=== PATIENT | male | born 1955 | race Caucasian/White ===

== ENCOUNTER → 2017-08-10 | Day surgery (SDC) | payer MEDICARE ==
[2017-08-08 11:40] LABS: BASOPHILS # (AUTO) 0.1 (0.0-0.1); BASOPHILS % 0.8 % (0.0-1.0); EOSINOPHILS # (AUTO) 0.2 (0.0-0.4); EOSINOPHILS % 2.8 % (0.0-6.0); HEMATOCRIT 43.8 % (38.2-49.6); HEMOGLOBIN 14.1 g/dL (14.0-18.0); LYMPHOCYTES # (AUTO) 2.2 (1.0-3.2); MEAN CORPUSCULAR HEMOGLOBIN 29.7 pg (28-32); MEAN CORPUSCULAR HGB CONC 32.2 g/dL (31-35); MEAN CORPUSCULAR VOLUME 92.2 fL (81-99); MONOCYTES # (AUTO) 0.6 (0.2-0.8); MONOCYTES % 8.2 % (4.4-11.3); NEUTROPHILS # (AUTO) 4.5 (2.1-6.9); NEUTROPHILS % 58.7 % (38.7-80.0); PLATELET COUNT 285 x10e3/uL (140-360); RED BLOOD COUNT 4.75 x10e6/uL (4.3-5.7); RED CELL DISTRIBUTION WIDTH 13.2 % (11.7-14.4)
[~2017-08-10] MED LIST: ASPIRIN81 MG PO; CARVEDILOL12.5 MG PO; FENTANYL CITRATE/PF 100MCG/2 ML INJ ONE; GABAPENTIN300 MG PO; LIDOCAINE HCL 2% LOCAL INJ 5 ML SDV VIAL INJ ONE; MIDAZOLAM HCL 2 MG/2 ML VIAL ONE; NORCO 5-325 TA1 EACH PO; PROAIR HFA INH8.5 GM INH; PROPOFOL IV EMULSION 10 MG/ML 20 ML VIAL ONE; SIMVASTATIN40 MG PO
--- OUTSIDE RECORDS SUMMARY | 2017-08-10 09:11 | XMS REPORT | Clinical Summary ---
Author Author [facility] Address Unknown Phone Unavailable Care Team Providers Care Base Remover Name Role Phone Corrine Sharma PCP Allergies Active Allergy Reactions Severity Noted Date Comments Rice 01/18/2017 Causes swelling of both legs Current Medications Prescription Sig. Disp. Refills Start End Date Status Date gabapentin (NEURONTIN) Take 300 mg by mouth 3 Active 300 mg capsule (three) times a day. omeprazole (PriLOSEC) 40 Take 40 mg by mouth Active MG capsule daily. carvedilol (COREG) 6.25 Take 6.25 mg by mouth 2 Active MG tablet (two) times a day with meals. aspirin (ECOTRIN) 81 MG Take 81 mg by mouth Active enteric coated tablet daily. tamsulosin (FLOMAX) 0.4 Take 0.4 mg by mouth Active mg capsule,extended Medrol Dose Pack release 24hr Scheduling ONLY. simvastatin (ZOCOR) 20 MG Take 20 mg by mouth Active tablet nightly. HYDROcodone-acetaminophen Take 1 tablet by mouth Active (NORCO) 10-325 mg per every 6 (six) hours as tablet needed for moderate pain. ciprofloxacin (CIPRO) 500 Take 500 mg by mouth 2 01/13/20 Discontin MG tablet (two) times a day. 17 ued Active Problems Problem Noted Date Hx of endovascular stent graft for abdominal aortic aneurysm 04/19/2017 AAA (abdominal aortic aneurysm) 01/28/2017 Aortic aneurysm 01/28/2017 Abdominal aortic aneurysm (AAA) without rupture 12/02/2016 Essential hypertension 12/02/2016 Tobacco dependence 12/02/2016 Acute cystitis without hematuria 12/02/2016 Encounters Date Type Specialty Care Team Description 04/19/2017 Office Visit Cardiovascular Carlos Suresh Hx of endovascular stent MD Karan graft for abdominal aortic aneurysm (Primary Dx) 04/19/2017 Orders Only Cardiovascular Sherin Hubbard MA 03/24/2017 Telephone Cardiology Erik Birmingham MD unable to reach pt regarding appt 03/17/2017 Orders Only Zulma Gallego Patient in clinical research study (Primary Dx) 02/25/2017 Orders Only Zulma Gallego Exam for clinical research (Primary Dx) 02/24/2017 Orders Only Nahomi Flannery RN Research exam (Primary Dx) 02/24/2017 Orders Only Zulma Gallego Exam for clinical research (Primary Dx) 02/21/2017 Orders Only Cardiovascular Sherin Hubbard MA Status post surgery (Primary Dx) 02/01/2017 Orders Only Zulma Gallego Exam for clinical research (Primary Dx) 01/29/2017 Patient Quality Shanna Lizarraga, RN Outreach 01/28/2017 [facility] Cardiology Carlos Suresh - Encounter MD Karan 01/29/2017 01/28/2017 Procedure Pass Cardiothoracic Surgery 01/28/2017 Surgery Cardiothoracic Surgery Carlos Suresh ENDOVASCULAR AORTIC MD Karan ANEURYSM REPAIR, WITH EXCLUDER AAA ENDOPROSTHESIS TRUNK-IPSILATERAL LEG 26MM IN AORTA RIGHT COMMON ILIAC, EXCLUDER AAA ENDOPROSTHESIS CONTRALATERAL LEG 16MM IN LEFT COMMON ILIAC 01/18/2017 [facility] Radiology Carlos Suresh Encounter MD Karan 01/18/2017 Pre-Admit Pre-Admission Testing Carlos Suresh Pre-op testing (Primary Testing MD Karan Dx) Appointment 01/18/2017 Office Visit Cardiovascular Carlos Suresh Abdominal aortic aneurysm MD Karan (AAA) without rupture (Primary Dx);Tobacco dependence;Essential hypertension 01/18/2017 Anesthesia Cardiothoracic Surgery Ruy Horton, JESSICA Event 01/12/2017 [facility] Radiology Carlos Suresh Abdominal aortic aneurysm Encounter MD Karan (AAA) without rupture 12/16/2016 Transcribe Access Carlos Suresh Abdominal aortic aneurysm Orders MD Karan (AAA) without rupture (Primary Dx) 12/03/2016 Orders Only Cardiovascular Sherin Hubbard MA Abdominal aortic aneurysm (AAA) without rupture (Primary Dx) 12/02/2016 Office Visit Cardiovascular Carlos Suresh Abdominal aortic aneurysm MD Karan (AAA) without rupture (Primary Dx);Essential hypertension;Acute cystitis without hematuria;Tobacco dependence after 08/09/2016 Social History Tobacco Use Types Packs/Day Years Used Date Current Every Day Smoker Cigarettes 1.5 40 Smokeless Tobacco: Never Used Alcohol Use Drinks/Week oz/Week Comments Yes occ. Sex Assigned at Date Recorded Not on file Last Filed Vital Signs Vital Sign Reading Time Taken Blood Pressure 144/82 04/19/2017 1:03 PM CDT Pulse 82 04/19/2017 1:03 PM CDT Temperature 36.8 C (98.2 F) 04/19/2017 1:03 PM CDT Respiratory Rate 17 01/29/2017 11:28 AM CDT Oxygen Saturation 95% 01/29/2017 11:28 AM CDT Inhaled Oxygen - - Concentration Weight 88 kg (194 lb) 04/19/2017 1:03 PM CDT Height 170.2 cm (5' 7") 04/19/2017 1:03 PM CDT Body Mass Index 30.38 04/19/2017 1:03 PM CDT Plan of Treatment Health Maintenance Due Date Last Done Comments COLONOSCOPY 2004 ZOSTER VACCINE 2014 INFLUENZA VACCINE 02/01/2017 Implants Implanted Type Area Stockroom Attendant Device Expiration Model / Identifier Date Serial / Lot [id number] Main Body - IPM N/A: N/A [employer] 07/12/2019 [id number] - [id number] IMPLANT / Implanted: Qty: 1 on 01/28/2017 by DEVICES [id number] / Carlos Suresh MD [id number] [facility] [id number] [facility] Vascular Closure Medical 2114 - [id number] Science & / Implanted: Qty: 1 on 01/28/2017 by Research Carlos Suresh MD Stent Kbfibo-V-[id number] Endprths Vascular N/A: N/A W L GORE 09/08/2019 [id number] Excluder Aaa 12cm 12mm - [id number] Graft / - [id number] / Implanted: Qty: 1 on 01/28/2017 by [id number] Carlos Suresh MD Procedures Procedure Name Priority Date/Time Associated Diagnosis Comments ARTERIAL LINE Routine 01/28/2017 8:23 AM CDT Procedure Note - Joan Velasquez MD - 01/28/2017 7:58 AM CDT Arterial line Performed by: VICTOR HUGO BURCH Authorized by: VICTOR HUGO BURCH Patient Location: OR Staff: Anesthesio logist: JOAN VELASQUEZ Resident/C RNA: BREN SON Performed by: Resident/C RNA Pre-proced ure: patient identified , IV checked, site and side verified, risks and benefits discussed, procedure verified, surgical consent complete, patient position confirmed, monitors and equipment checked and pre-op evaluation complete MSBT: antiseptic used, all elements of maximal sterile barrier technique followed, hand hygiene performed, cap/gown used by other personnel and solutions labeled Indication s: Indication s: multiple ABGs and hemodynami c monitoring Anesthesia : Anesthesia : Local infiltrati on Procedure Details: Arterial Line placement: Placed pre-induct ion Line placement site: Radial Line placement side: Right Arterial line gauge: 20 G Number of attempts: 1 Ultrasound guidance used: No Post-proce dure: Post-proce dure: Sterile dressing applied Post procedure circulatio n, sensation, movement: Normal Patient tolerance: Patient tolerated the procedure well with no immediate complicati ons NE AN ELECTIVE Routine 01/28/2017 ENDOTRACHEAL AIRWAY 8:22 AM CDT Procedure Note - Joan Velasquez MD - 01/28/2017 7:58 AM CDT Airway Performed by: VICTOR HUGO BURCH Authorized by: VICTOR HUGO BURCH Location: OR Urgency: Elective Difficult Airway: No Anesthesio logist: JOAN VELASQUEZ Resident/C RNA: VICTOR HUGO BURCH Performed by: resident/C LORENZA Preoxygena shanti with 100% O2: Yes C-spine Precaution s Maintained Throughout : Yes Mask Ventilatio n: Easy mask Final Airway Type: Endotrache al airway Final Endotrache al Airway: ETT Cuffed: Yes Technique Used: Direct laryngosco py Insertion Site: Oral Blade Type: Grimm Laryngosco pe Blade/Vide olaryngosc ope Blade Size: 2 ETT Size (mm): 8.0 Cuff at minimum occlusion pressure: Yes Measured from: Lips ETT to Lips (cm): 22 Placement Verified by: CO2 detection, direct visualizat ion and equal breath sounds Laryngosco pic view: Grade I - full view of glottis Rapid Sequence Induction (RSI): No Modified RSI: No Number of Attempts at Approach: 1 after 08/09/2016 Results * PV ankle brachial indices extremity complete (01/29/2017 1:50 PM) Only the most recent of 2 results within the time period is included. Specimen Performing Laboratory [facility] [address] [place] [address] Narrative Vascular Diagnostic Laboratory Physiologic Arterial Leg Report [address] [place] [address] Pat.Name:GWEN MILLS Pat.ID:[id number] St.Date: 01/29/2017 Refer.MD:CARLOS SURESH MD Exam Time: 1:29:00 PMStudy Type:Physiologic Leg DOBAge:1955,61Y Sex: MALE Sonogrphr: Jarod Gregorio RVT Pat. Stat.:Inpatient Room:Y482-XBsivFcj: [facility] - 4: 23984 Echo Event ID:[id number] Order ID:[id number] Reason for Study:MANTA research study; pre-discharge NORBERTO exam. s/p EVAR. Race:D SUMMARY: PULSES: RIGHT LEFT Dorsalis Pedis+ + Posterior Tibial+ + DOPPLER SIGNALS /ANALOG WAVEFORMS: DOPPLER SIGNALS ARTERY RIGHT LEFT Posterior Tibial Normal Normal Dorsalis Pedis Normal Normal PRELIMINARY FINDINGS: 1. The right dorsalis pedis falls within the minimal category 2. The right posterior tibial and left sided ankle brachial index is normal 3. Doppler signals are triphasic, bilaterally PHYSICIAN INTERPRETATION: Bilateral lower extremity arterial exam demonstrates no evidence of significant arterial occlusive disease. MEASUREMENTS: PRESSURES Right Brachial Brach P120 mmHg Left Brachial Brach P127 mmHg Right Ankle PT AnklePT P126 mmHg Left Ankle PT AnklePT P129 mmHg Right Ankle DP AnkleDP P120 mmHg Left Ankle DP AnkleDP P133 mmHg Right NORBERTO PT NORBERTO PT 0.992 Left NORBERTO PT NORBERTO PT1.02 Right NORBERTO DP NORBERTO DP 0.945 Left NORBERTO DP NORBERTO DP1.05 Signed 01/29/2017 05:50 PM Woody Marie MD, RPVI Procedure Note Interface, Radiology Results In - 01/29/2017 5:52 PM CDT Vascular Diagnostic Laboratory Physiologic Arterial Leg Report [address] [place] [address] Pat.Name: GWEN MILLS Pat.ID: [id number] .Date: 01/29/2017 Refer.MD: CARLOS SURESH MD Exam Time: 1:29:00 PM Study Type:Physiologic Leg Age: 7 1955,61Y Sex: MALE Sonogrphr: Jarod Gregorio RVT Pat. Stat.:Inpatient Room: [address] Vol: VB, CPT - 4: [address]16 Echo Event ID:[id number] Order ID: [id number] Reason for Study:MANTA research study; pre-discharge NORBERTO exam. s/p BIRDAR. Race: D SUMMARY: PULSES: RIGHT LEFT Dorsalis Pedis + + Posterior Tibial + + DOPPLER SIGNALS / ANALOG WAVEFORMS: DOPPLER SIGNALS ARTERY RIGHT LEFT Posterior Tibial Normal Normal Dorsalis Pedis Normal Normal PRELIMINARY FINDINGS: 1. The right dorsalis pedis falls within the minimal category 2. The right posterior tibial and left sided ankle brachial index is normal 3. Doppler signals are triphasic, bilaterally PHYSICIAN INTERPRETATION: Bilateral lower extremity arterial exam demonstrates no evidence of significant arterial occlusive disease. MEASUREMENTS: PRESSURES Right Brachial Brach P 120 mmHg Left Brachial Brach P 127 mmHg Right Ankle PT AnklePT P 126 mmHg Left Ankle PT AnklePT P 129 mmHg Right Ankle DP AnkleDP P 120 mmHg Left Ankle DP AnkleDP P 133 mmHg Right NORBERTO PT NORBERTO PT 0.992 Left NORBERTO PT NORBERTO PT 1.02 Right NORBERTO DP NORBERTO DP 0.945 Left NORBERTO DP NORBERTO DP 1.05 Signed 01/29/2017 05:50 PM Woody Marie MD, RPVI * POC glucose (01/29/2017 12:20 PM) Only the most recent of 5 results within the time period is included. Component Value Ref Range POC glucose 99 65 - 99 mg/dL Comment: [facility] Notified RN Meter ID: [id number] Brass Molder Helper: Shreysa Arunaant Diaz Specimen Performing Laboratory [facility] DEPARTMENT OF PATHOLOGY AND GENOMIC MEDICINE [address] [place] [address] * PV duplex arterial lower extremity (01/28/2017 1:51 PM) Specimen Performing Laboratory [facility] [address] [place] [address] Narrative Vascular Ultrasound Laboratory Lower Extremity Arterial Duplex Report [address] [place] [address] Pat.Name:GWEN MILLS Pat.ID:[id number] .Date: 01/28/2017 Refer.MD:CARLOS SURESH MD Exam Time: 1:15:00 PMStudy Type:LE Arterial DOBAge:1955,61Y Sex: MALE Sonogrphr: Jarod Gregorio RVT Pat. Stat.:Inpatient Room:H177-VLouyIae: , CPT - 4: 40959 Echo Event ID:[id number] Order ID:[id number] Reason for Study:MANTA research study; post-op arterial exam. s/p EVAR. Race:D SUMMARY: DUPLEX SCAN OBSERVATIONS: RIGHT: The femoral artery and vein are visualized in the right groin. A bright echogenic structure/closure device is seen in the distal common femoral artery. Trickle flow is noted around the device and into the tissue, however there is no evidence of a pseudoaneurysm sac or hematoma. There are elevated velocities obtained in the common femoral artery at the level of the closure device, and disturbed flow in the profunda, and superficial femoral artery. Venous flow shows normal phasicity and augmentation with no evidence of AV fistula. PRELIMINARY FINDINGS: 1. No evidence of pseudoaneurysm, hematoma or AV fistula in the right groin 2. Echogenic structure/closure device is seen in the distal common femoral artery 3. Trickle flow is seen around the device and into the tissue, however there is no evidence of a sac formation 4. Elevated velocities are obtained in the common femoral artery at the level of the closure device PHYSICIAN INTERPRETATION: No evidence of pseudoaneurysm, hematoma or AV fistula in the right groin 50% right SAFETY SPEC stenosis. MEASUREMENTS: DOPPLER Right EIA Dist EIA Dist PSV 142 cm/s Right SAFETY SPEC Mid SAFETY SPEC Mid UEH054 cm/s Right SAFETY SPEC Dist SAFETY SPEC Dist PSV 229 cm/s Right Profunda Profunda PSV61 cm/s Right SFA Prox SFA Prox PSV 117 cm/s Signed 01/28/2017 09:29 PM Woody Marie MD, RPVI Procedure Note Interface, Radiology Results In - 01/28/2017 9:29 PM CDT Vascular Ultrasound Laboratory Lower Extremity Arterial Duplex Report [address] [id number] Pat.Name: GWEN MILLS.ID: [id number] .Date: 01/28/2017 Refer.MD: CARLOS SURESH MD Exam Time: 1:15:00 PM Study Type:LE Arterial Age: 7 1955,61Y Sex: MALE Sonogrphr: Jarod Gregorio KESHIA Pat. Stat.:[facility] - 4: [address]4843 Echo Event ID:[id number] Order ID: [id number] Reason for Study:MANTA research study; post-op arterial exam. s/p EVAR. Race: D SUMMARY: DUPLEX SCAN OBSERVATIONS: RIGHT: The femoral artery and vein are visualized in the right groin. A bright echogenic structure/closure device is seen in the distal common femoral artery. Trickle flow is noted around the device and into the tissue, however there is no evidence of a pseudoaneurysm sac or hematoma. There are elevated velocities obtained in the common femoral artery at the level of the closure device, and disturbed flow in the profunda, and superficial femoral artery. Venous flow shows normal phasicity and augmentation with no evidence of AV fistula. PRELIMINARY FINDINGS: 1. No evidence of pseudoaneurysm, hematoma or AV fistula in the right groin 2. Echogenic structure/closure device is seen in the distal common femoral artery 3. Trickle flow is seen around the device and into the tissue, however there is no evidence of a sac formation 4. Elevated velocities are obtained in the common femoral artery at the level of the closure device PHYSICIAN INTERPRETATION: No evidence of pseudoaneurysm, hematoma or AV fistula in the right groin 50% right SAFETY SPEC stenosis. MEASUREMENTS: DOPPLER Right EIA Dist EIA Dist PSV 142 cm/s Right SAFETY SPEC Mid SAFETY SPEC Mid PSV 106 cm/s Right SAFETY SPEC Dist SAFETY SPEC Dist PSV 229 cm/s Right Profunda Profunda PSV 61 cm/s Right SFA Prox SFA Prox PSV 117 cm/s Signed 01/28/2017 09:29 PM Woody Marie MD, RPVI * Sodium level, syringe (01/28/2017 9:50 AM) Only the most recent of 3 results within the time period is included. Component Value Ref Range Sodium, syringe 137 135 - 148 mEq/L Specimen Performing Laboratory Blood [facility] DEPARTMENT OF PATHOLOGY AND [facility] [address] [place] [address] * Potassium, syringe (01/28/2017 9:50 AM) Only the most recent of 3 results within the time period is included. Component Value Ref Range Potassium, syringe 4.1 3.5 - 5.0 mEq/L Specimen Performing Laboratory Blood [facility] DEPARTMENT OF PATHOLOGY [address] [address] * Ionized calcium, arterial (01/28/2017 9:50 AM) Only the most recent of 3 results within the time period is included. Component Value Ref Range Ionized calcium, arterial 1.14 1.11 - 1.32 mmol/L Specimen Performing Laboratory Blood [facility] [place] [address] * Hemoglobin, syringe (01/28/2017 9:50 AM) Only the most recent of 3 results within the time period is included. Component Value Ref Range Hemoglobin, syringe 11.5 (L) 14.0 - 18.0 g/dL Specimen Performing Laboratory Blood [facility] [place] [address] * Glucose level, syringe (01/28/2017 9:50 AM) Only the most recent of 3 results within the time period is included. Component Value Ref Range Glucose, syringe 129 (H) 65 - 99 mg/dL Specimen Performing Laboratory Blood [facility] DEPARTMENT OF PATHOLOGY [place] [id number] * Arterial blood gas (01/28/2017 9:50 AM) Only the most recent of 2 results within the time period is included. Component Value Ref Range pH, arterial 7.36 7.35 - 7.45 pCO2, arterial 45 35 - 45 mmHg pO2, arterial 291 (H) 80 - 90 mmHg Bicarbonate, arterial 24.5 21.0 - 28.0 mmol/L Base excess, arterial -1 -2 - 2 mEq/L O2 saturation, arterial 100 95 - 100 % Specimen Performing Laboratory Blood [facility] DEPARTMENT OF PATHOLOGY AND [facility] [address] [place] [address] * Arterial blood gas, corrected (01/28/2017 7:33 AM) Component Value Ref Range pH, arterial 7.33 (L) 7.35 - 7.45 pCO2, arterial 54 (H) 35 - 45 mmHg pO2, arterial 255 (H) 80 - 90 mmHg Temperature, Celsius 36.0 Degrees C O2 saturation, arterial 100 95 - 100 % pH, arterial corrected 7.35 pCO2, arterial corrected 51 mmHg pO2, arterial corrected 251 mmHg Base excess, arterial 1 -2 - 2 mEq/L Specimen Performing Laboratory Blood [facility] DEPARTMENT OF PATHOLOGY AND GENOMIC MEDICINE [address] [place] [address] * XR Chest 2 Vw (01/18/2017 5:57 PM) Specimen Performing Laboratory [facility] [address] [place] [address] Narrative EXAMINATION:XR CHEST 2 VW CLINICAL HISTORY:Z01.818 Encounter for other preprocedural examination, pre op COMPARISON:CTA chest abdomen pelvis performed on 01/12/2017 IMPRESSION: Lungs appear clear without focal infiltrate, pleural effusion or pneumothorax. Minimal elevation left hemidiaphragm. Cardiomediastinal silhouette is within normal limits. Focal atherosclerosis aortic arch. Degenerative changes thoracic spine and bilateral acromioclavicular joints. Osteopenia. [facility]-[id number] Procedure Note [facility], Radiology Results Incoming - 01/18/2017 6:26 PM CDT EXAMINATION: XR CHEST 2 VW CLINICAL HISTORY: Z01.818 Encounter for other preprocedural examination, pre op COMPARISON: CTA chest abdomen pelvis performed on 01/12/2017 IMPRESSION: Lungs appear clear without focal infiltrate, pleural effusion or pneumothorax. Minimal elevation left hemidiaphragm. Cardiomediastinal silhouette is within normal limits. Focal atherosclerosis aortic arch. Degenerative changes thoracic spine and bilateral acromioclavicular joints. Osteopenia. [facility]-[id number] * ECG Pre/Post Op (01/18/2017 5:14 PM) Component Value Ref Range Ventricular rate 83 Atrial rate 83 NE interval 138 QRSD interval 90 QT interval 396 QTC interval 465 P axis 1 54 QRS axis 1 56 T wave axis -51 EKG impression Normal sinus rhythm-T wave abnormality, consider inferior ischemia-Prolonged QT-Abnormal ECG-In automated comparison with ECG of 15-APR-2014 09:38,-T wave inversion now evident in Inferior leads-T wave inversion now evident in Lateral leads- Specimen Performing Laboratory [facility] [address] [place] [address] * Estimated GFR (01/18/2017 5:03 PM) Only the most recent of 2 results within the time period is included. Component Value Ref Range GFR Non Af Amer 61 mL/min/1.73 m2 GFR Af Amer 74 mL/min/1.73 m2 Comment: Chronic kidney disease: <60 mL/min/1.73m2 Kidney failure: <15 mL/min/1.73m2 The estimated GFR is calculated from the IDMS-traceable Modification of Diet in Renal Disease Equation. The accuracy of the calculation is poor when the creatinine is normal. Calculated values >90 mL/min/1.73m2 are not reported. This equation has not been validated in children (<18 years), women, the elderly (>70 years), or ethnic groups other than Caucasians and Americans. Specimen Performing Laboratory Plasma specimen [facility] DEPARTMENT OF PATHOLOGY AND GENOMIC MEDICINE [address] [place] [address] * Urinalysis, automated with microscopy (01/18/2017 5:03 PM) Component Value Ref Range Color, UA Yellow Appearance, UA Clear Specific gravity, UA 1.020 1.001 - 1.035 pH, UA 6.0 5.0 - 8.5 Protein, UA Negative Negative Glucose, UA Negative Negative Ketones, UA Negative Negative Bilirubin, UA Negative Negative Blood, UA Negative Negative Nitrite, UA Negative Negative Urobilinogen, UA <2.0 <2.0 Leukocyte esterase, UA Negative Negative WBC, UA 1 0 - 1 /HPF RBC, UA 1 0 - 1 /HPF Bacteria, UA Few None seen Yeast, UA None seen Yeast with pseudohyphae, None seen UA Specimen Performing Laboratory Urine [facility] DEPARTMENT OF PATHOLOGY AND GENOMIC MEDICINE [address] [place] [address] * Partial thromboplastin time, activated (01/18/2017 5:03 PM) Component Value Ref Range PTT 31.2 23.0 - 36.0 sec Comment: PTT therapeutic range for unfractionated heparin is 61.0-112.0 seconds which corresponds to Anti-Xa 0.3-0.7 U/ml. Specimen Performing Laboratory Blood [facility] DEPARTMENT OF PATHOLOGY AND [facility] [address] [place] [address] * Prothrombin time with INR (01/18/2017 5:03 PM) Component Value Ref Range Prothrombin time 13.1 12.0 - 15.0 sec INR 1.0 Comment: The International Normalized Ratio (INR) is a therapeutic monitoring tool for patients who are stable on oral anticoagulant therapy. An INR of 2.0-3.0 is suggested for deep vein thrombosis/pulmonary embolism. Specimen Performing Laboratory Blood [facility] DEPARTMENT OF PATHOLOGY AND [facility] [address] [place] [address] * CBC hemogram (01/18/2017 5:03 PM) Component Value Ref Range WBC 9.31 4.50 - 11.00 k/uL RBC 4.96 4.40 - 6.00 m/uL HGB 15.1 14.0 - 18.0 g/dL HCT 45.7 41.0 - 51.0 % MCV 92.1 82.0 - 100.0 fL MCH 30.4 27.0 - 34.0 pg MCHC 33.0 31.0 - 37.0 g/dL RDW - SD 47.4 37.0 - 55.0 fL MPV 11.4 8.8 - 13.2 fL Platelet count 293 150 - 400 k/uL Nucleated RBC 0.00 /100 WBC Specimen Performing Laboratory Blood [facility] DEPARTMENT OF PATHOLOGY [address] [address] * Prepare RBC (01/18/2017 5:03 PM) Component Value Ref Range Product name Red Blood Cells -1, Leukored Unit number [id number] Product code [id number] Dispense status Returned to not transfused Blood expiration date 20170225 Blood type code 6200 Blood type A POSITIVE Product name Red Blood Cells -1, Leukored Unit number [id number] Product code [id number] Dispense status Returned to not transfused Blood expiration date 20170224 Blood type code 6200 Blood type A POSITIVE Specimen Performing Laboratory [facility] DEPARTMENT OF PATHOLOGY [facility] [address] [place] [address] * Type and screen (01/18/2017 5:03 PM) Component Value Ref Range ABO grouping A Rh type POS Antibody screen (gel) NEG Specimen Performing Laboratory Blood [facility] DEPARTMENT OF PATHOLOGY AND [facility] [address] [place], [place] [id number] * B natriuretic peptide (01/18/2017 5:03 PM) Component Value Ref Range BNP <3 0 - 100 pg/mL Specimen Performing Laboratory Blood [facility] DEPARTMENT OF PATHOLOGY AND [facility] [address] [place] [address] * Hemoglobin A1c (01/18/2017 5:03 PM) Component Value Ref Range Hemoglobin A1C 5.7 (H) 4.0 - 5.6 % Comment: HbA1c cutoffs for diagnosing diabetes: 4.0% - 5.6%=normal 5.7% - 6.4%=increased risk for diabetes (prediabetes) >=6.5%=diabetes Goals for glycemic control (ADA 2016) < 7.0% Target for non adults with diabetes. More or less stringent targets may be appropriate for individual patients. <7.5% Target for Children and adolescents with type 1 diabetes. Specimen Performing Laboratory Blood [facility] DEPARTMENT OF PATHOLOGY AND GENOMIC MEDICINE [address] [place] [id number] * Hepatic function panel (01/18/2017 5:03 PM) Component Value Ref Range Albumin 3.7 3.5 - 5.0 g/dL Total bilirubin 0.3 0.0 - 1.2 mg/dL Bilirubin direct <0.2 0.0 - 0.3 mg/dL Alkaline phosphatase 55 40 - 129 U/L Protein 7.8 6.3 - 8.3 g/dL Comment: 4.6-7.0 g/dL 1 week 4.4-7.6 g/dL 7 months-1year 5.1-7.3 g/dL 1-2 years 5.6-7.5 g/dL >3 years 6.0-8.0 g/dL 18-150 6.3-8.3 g/dL ALT 17 5 - 50 U/L AST 20 10 - 50 U/L Specimen Performing Laboratory Plasma specimen [facility] DEPARTMENT OF PATHOLOGY AND GENOMIC MEDICINE [address] [place] [id number] * Lipid panel (01/18/2017 5:03 PM) Component Value Ref Range Cholesterol 276 (H) <200 mg/dL Triglycerides 134 <150 mg/dL HDL cholesterol 46 >40 mg/dL LDL cholesterol 201 (H)Comment: Result obtained by direct LDL <100 mg/dL measurement Lipid panel SeeBelow interpretation Comment: Total Cholesterol (mg/dL) <200 Desirable 200-239 Borderline-high >=240 High Triglycerides (mg/dL) <150 Normal 150-199 Borderline-high 200-499 High >=500 Very high HDL Cholesterol (mg/dL) <40 Low (male) <40 Low (female) LDL Cholesterol (mg/dL) <100 Optimal 100-129 Near or above optimal 130-159 Borderline-high 160-189 High >=190 Very high Risk Catergories that modify LDL goals. Risk Catergories LDL goal (mg/dL) CHD and CHD risk equivalent <100 (10-year risk >20%) Multiple (2+) risk factors <130 (10-year risk=<20%) 0-1 risk factors <160 (<10-year risk) Defining levels of lipids in metabolic syndrome Triglycerides >=150 mg/dL HDL Cholesterol Men <40 mg/dL Women <40 mg/dL Non-HDL cholesterol is a second target for therapy in persons with high triglycerides (>=200 mg/dL) Specimen Performing Laboratory Plasma specimen [facility] DEPARTMENT OF PATHOLOGY AND [facility] [address] [place] [id number] * Basic metabolic panel (01/18/2017 5:03 PM) Component Value Ref Range Sodium 137 135 - 148 mEq/L Potassium 4.1 3.5 - 5.0 mEq/L Chloride 97 (L) 98 - 112 mEq/L CO2 24 24 - 31 mEq/L Anion gap 16 (H) 7 - 15 mEq/L Comment: Starting from October , anion gap calculation no longer incorporates potassium. Please note the change. BUN 13 8 - 23 mg/dL Creatinine 1.2 0.7 - 1.2 mg/dL Glucose 127 (H) 65 - 99 mg/dL Calcium 9.5 8.8 - 10.2 mg/dL Specimen Performing Laboratory Plasma specimen [facility] DEPARTMENT OF PATHOLOGY AND GENOMIC MEDICINE [address] [place] [id number] * CT Angiogram Chest W Contrast Abdomen W Contrast Pelvis W Contrast (2016 1:20 PM) Specimen Performing Laboratory [id number] ANGIOGRAM CHEST ABDOMEN PELVIS W AND OR WITHOUT CONTRAST CLINICAL HISTORY:I71.4 Abdominal aortic aneurysmwithout rupture, AAA TECHNIQUE: CT angiography of the chest and abdomen was performed following the intravenous administration of iodinated contrast with automated exposure control and/or iterative reconstruction techniques to radiation dose. In addition to standard reformatted images, 3-D MIP and volume renderedimages were performed for CT angiography. COMPARISON:None. FINDINGS: AORTA:The thoracic aorta is normal in caliber with uncoiling of the ascending aorta with mildly tortuous course of the descending thoracic aorta without aneurysm or acute abnormality visualized. Mild atherosclerotic plaque is present. There is also prominent eccentric plaque in the proximal infrarenal aorta with a nearly 6 cm in length distal abdominal aortic aneurysm that measures 5.5 x 5.5 cm tangential to flow at the inferior L3 level. Prominent eccentric thrombus is present in the aneurym sac, the intraluminal contrast about 2.8 x 3.1 cm transverse. Mild peripheral atherosclerotic mural calcifications are present. Of note, the aneurysm tapers just proximal to the aortic bifurcation for about 1.7cm. ILIOFEMORAL ARTERIES: Prominent atherosclerosis of the common iliac arteries present bilaterally with mild stenoses. No significant stenosis of the common, internal, or external iliac arteries are present bilaterally and there is antegrade flow significant stenosis involving the common femoral arteries in the proximal superficial femoral and profunda femoral arteries. MESENTERIC ARTERIES: Celiac trunk and branch vessels are unremarkable. The SMA is patent with a replaced right hepatic artery. The VERN is patent and occurs about the inferior aspect of the aneurysm sac (coronal image 31). RENAL ARTERIES: A single right and 2 left renal arteries are present, the accessory artery on the left occurring along the anterior aspect of the aorta just superior to the main left renal artery. No significant stenosis. OTHER VASCULAR FINDINGS:Pulmonary arteries are unremarkable centrally. IVC and portal vein is are unremarkable for phase. CHEST: 1.Mild changes of COPD are present with minimal dependent atelectasis. No significant consolidation. 2.The heart is mildly enlarged. No pericardial effusion. 3.No mediastinal mass is visualized trachea and esophagus are unremarkable. 4.There are small subcentimeter short axis mediastinal and hilar lymph nodes , nonspecific in appearance and not considered enlarged by size criterion. ABDOMEN: 1.The liver, spleen, pancreas, adrenal glands, and kidneys are unremarkable. Gallbladder is incompletely distended. 2.Bowel is normal in caliber without wall thickening or inflammatory changes. Scattered diverticula noted through the descending and sigmoid colon without complication 3.There is no adenopathy in the abdomen. No ascites. No retroperitoneal infiltration or hematoma. PELVIS: 1.Urinary bladder, prostate and seminal vesicles are unremarkable apart from coarse nonspecific calcifications in the prostate. Scattered vascular phleboliths are noted. There is no pelvic mass or adenopathy. BONES: 1.No fracture or suspicious osseous lesion is identified. There are changes status post fixation L4-S1 with associated streak artifact. laminectomies noted at this level with lateral bone graft material. IMPRESSION: 5.5 x 5.5 cm distal infrarenal abdominal aortic aneurysm as described. Please see report. Thank you for allowing us to participate in the care of your patient. [facility]-[id number] Procedure Note Hm Interface, Radiology Results Incoming - 01/12/2017 2:[address] ANGIOGRAM CHEST ABDOMEN PELVIS W AND OR WITHOUT CONTRAST CLINICAL HISTORY: I71.4 Abdominal aortic aneurysm without rupture, AAA TECHNIQUE: CT angiography of the chest and abdomen was performed following the intravenous administration of iodinated contrast with automated exposure control and/or iterative reconstruction techniques to radiation dose. In addition to standard reformatted images, 3-D MIP and volume rendered images were performed for CT angiography. COMPARISON: None. FINDINGS: AORTA: The thoracic aorta is normal in caliber with uncoiling of the ascending aorta with mildly tortuous course of the descending thoracic aorta without aneurysm or acute abnormality visualized. Mild atherosclerotic plaque is present. There is also prominent eccentric plaque in the proximal infrarenal aorta with a nearly 6 cm in length distal abdominal aortic aneurysm that measures 5.5 x 5.5 cm tangential to flow at the inferior L3 level. Prominent eccentric thrombus is present in the aneurym sac, the intraluminal contrast about 2.8 x 3.1 cm transverse. Mild peripheral atherosclerotic mural calcifications are present. Of note, the aneurysm tapers just proximal to the aortic bifurcation for about 1.7cm. ILIOFEMORAL ARTERIES: Prominent atherosclerosis of the common iliac arteries present bilaterally with mild stenoses. No significant stenosis of the common, internal, or external iliac arteries are present bilaterally and there is antegrade flow significant stenosis involving the common femoral arteries in the proximal superficial femoral and profunda femoral arteries. MESENTERIC ARTERIES: Celiac trunk and branch vessels are unremarkable. The SMA is patent with a replaced right hepatic artery. The VERN is patent and occurs about the inferior aspect of the aneurysm sac (coronal image 31). RENAL ARTERIES: A single right and 2 left renal arteries are present, the accessory artery on the left occurring along the anterior aspect of the aorta just superior to the main left renal artery. No significant stenosis. OTHER VASCULAR FINDINGS: Pulmonary arteries are unremarkable centrally. IVC and portal vein is are unremarkable for phase. CHEST: 1. Mild changes of COPD are present with minimal dependent atelectasis. No significant consolidation. 2. The heart is mildly enlarged. No pericardial effusion. 3. No mediastinal mass is visualized trachea and esophagus are unremarkable. 4. There are small subcentimeter short axis mediastinal and hilar lymph nodes , nonspecific in appearance and not considered enlarged by size criterion. ABDOMEN: 1. The liver, spleen, pancreas, adrenal glands, and kidneys are unremarkable. Gallbladder is incompletely distended. 2. Bowel is normal in caliber without wall thickening or inflammatory changes. Scattered diverticula noted through the descending and sigmoid colon without complication 3. There is no adenopathy in the abdomen. No ascites. No retroperitoneal infiltration or hematoma. PELVIS: 1. Urinary bladder, prostate and seminal vesicles are unremarkable apart from coarse nonspecific calcifications in the prostate. Scattered vascular phleboliths are noted. There is no pelvic mass or adenopathy. BONES: 1. No fracture or suspicious osseous lesion is identified. There are changes status post fixation L4-S1 with associated streak artifact. laminectomies noted at this level with lateral bone graft material. IMPRESSION: 5.5 x 5.5 cm distal infrarenal abdominal aortic aneurysm as described. Please see report. Thank you for allowing us to participate in the care of your patient. [facility]-[id number] * Creatinine level (01/12/2017 12:36 PM) Component Value Ref Range Creatinine 0.7Comment: Testing performed on the ISTAT 0.7 - 1.2 mg/dL instrument by RN [id number]. Specimen Performing Laboratory Plasma specimen [facility] DEPARTMENT OF PATHOLOGY AND GENOMIC MEDICINE [address] [place] [id number] after 08/09/2016 Insurance Payer Benefit Subscriber ID Type Phone Address Plan / Group [employer] CIGNA [id number] [employer] HMO MCR ADV MEDICARE MEDICARE [id number] Medicare [place], [place] PART A AND B Home: [address] [place], [place] [phone] [place] [address]
== END | disposition home or self-care (01) ==
LOC: OR 09:01
PROVIDERS: ATTEND Internal Medicine Gastroenterology
DX: K59.00 Constipation, unspecified (principal); D12.3 Benign neoplasm of transverse colon; D12.4 Benign neoplasm of descending colon; K29.70 Gastritis, unspecified, without bleeding; K27.9 Peptic ulcer, site unspecified, unspecified as acute or chronic, without hemorrhage or perforation; K44.9 Diaphragmatic hernia without obstruction or gangrene; K57.30 Diverticulosis of large intestine without perforation or abscess without bleeding; K64.8 Other hemorrhoids; J44.9 Chronic obstructive pulmonary disease, unspecified; I10 Essential (primary) hypertension; E66.9 Obesity, unspecified; Z01.810 Encounter for preprocedural cardiovascular examination; Z01.812 Encounter for preprocedural laboratory examination; Z79.82 Long term (current) use of aspirin; Z99.81 Dependence on supplemental oxygen; Z68.30 Body mass index [BMI] 30.0-30.9, adult; Z87.891 Personal history of nicotine dependence
CPT/HCPCS: 36415; 43239; 45385; 85025; 88305; 88312; 93005; J2001; J2250